=== PATIENT | female | born 1980 | race Hispanic/Latino ===

== ENCOUNTER 2023-02-03 12:24 | Outpatient (CLI) | payer BC ==
[~2023-02-03 12:24] MED LIST: Magnevist 469MG/ML 20 ML VIAL ONE
== END 2023-02-03 12:25 | disposition home or self-care (01) ==
LOC: CSHMRI 12:24
PROVIDERS: ATTEND Psychiatry & Neurology Neurology
DX: R51.9 Headache, unspecified (principal)
CPT/HCPCS: 70553; A9579